=== PATIENT | female | born 2000 | race African-American/Black ===

== ENCOUNTER 2022-08-17 11:28 | Emergency (ER) | payer SELFPAY ==
[2022-08-17 11:41] VITALS: BMI 30.9
[2022-08-17] MEDS ORDERED: ONDANSETRON 4 MG/2 ML VIAL IVPUSH ONE ×2 (12:24→14:39)
[2022-08-17] MEDS ORDERED: FAMOTIDINE 20 MG/50 ML IVPB 20 MG/50 ML MG IVPB ONE ×2 (12:24→14:44)
[2022-08-17] MEDS ORDERED: ACETAMINOPHEN 1000 MG/100 ML BAG IVPB ONE (12:24)
[2022-08-17] MEDS ORDERED: FOLIC ACID INJECTION - 1 MG, THIAMINE HCL 100 MG, MULTIVIT INJECTION ADULT 10 ML in SOD... IVPB ONE (12:24)
[2022-08-17] MEDS ORDERED: ONDANSETRON 4 MG/2 ML VIAL ONE ×2 (12:39→14:43)
[2022-08-17 13:18] LABS: BASO % 0.7 % (0-2.0); EOS % 0.3 % (0-4.5); HEMOGLOBIN 14.3 GM/dL (10.7-15.3); LYMPH % 21.9 % (8-40); MCH 29.6 pg (25.7-33.7); MCHC 33.3 g/dl (32.0-36.0); MEAN CELL VOLUME 88.9 fl (80-96); MEAN PLT VOLUME 7.7 fl (7.5-11.1); MONO % 4.6 % (3.8-10.2); NEUT % 72.5 % (42.8-82.8); PLATELET COUNT 258 10^3/uL (134-434); RBC 4.83 M/mm3 (3.60-5.2); RDW 13.3 % (11.6-15.6); WHITE BLOOD COUNT 6.1 K/mm3 (4.0-10.0)
[2022-08-17 13:31] LABS: ALBUMIN 4.2 g/dl (3.4-5.0); BLOOD UREA NITROGEN 9.4 mg/dL (7-18); CALCIUM 9.6 mg/dL (8.5-10.1); MAGNESIUM 2.2 mg/dL (1.8-2.4)
[2022-08-17 13:34] LABS: CREATININE 0.9 mg/dL (0.55-1.3)
[2022-08-17 13:36] LABS: BILIRUBIN,TOTAL 1.3 mg/dL (0.2-1); TOT PROT 8.2 g/dl (6.4-8.2)
[2022-08-17] MEDS ORDERED: ACETAMINOPHEN INJECTION 100 ML IVPB ONE (14:43)
[2022-08-17 15:38] VITALS: TEMP 97.9
[2022-08-17 16:28] VITALS: BP 124/80; PULSE 83; RESP 20
== END 2022-08-17 17:05 | disposition home or self-care (01) ==
LOC: JER 11:28
PROC: 3E033GC Introduction of Other Therapeutic Substance into Peripheral Vein, Percutaneous Approach (ICD-10-PCS; principal; 2022-08-17)
PROC: 3E033GC Introduction of Other Therapeutic Substance into Peripheral Vein, Percutaneous Approach (ICD-10-PCS; 2022-08-17)
PROC: 3E033NZ Introduction of Analgesics, Hypnotics, Sedatives into Peripheral Vein, Percutaneous Approach (ICD-10-PCS; 2022-08-17)
PROC: 3E033GC Introduction of Other Therapeutic Substance into Peripheral Vein, Percutaneous Approach (ICD-10-PCS; 2022-08-17)
DX: F10.129 Alcohol abuse with intoxication, unspecified (principal); R11.14 Bilious vomiting; R11.0 Nausea; R10.13 Epigastric pain; Y90.0 Blood alcohol level of less than 20 mg/100 ml; Z20.822 Contact with and (suspected) exposure to COVID-19
CPT/HCPCS: 0241U-QW; 36415; 80053; 80307; 83690; 83735; 84703; 85025; 93005; 93010; 99285-25

== ENCOUNTER 2022-09-25 17:38 | Emergency (ER) | payer OTHER ==
[2022-09-25 17:49] VITALS: BP 108/57; PULSE 71; RESP 18; TEMP 98.5; BMI 29.2
[2022-09-25] MEDS ORDERED: KETOROLAC TROMETHAMINE 30 MG/1 ML VIAL IM ONE (19:39)
[2022-09-25] MEDS ORDERED: DEXAMETHASONE SOD PHOSPHATE 10 MG/1 ML VIAL IM ONE (19:39)
[2022-09-25] MEDS ORDERED: KETOROLAC TROMETHAMINE 30 MG/1 ML VIAL ONE (19:41)
[2022-09-25] MEDS ORDERED: DEXAMETHASONE SOD PHOSPHATE 10 MG/1 ML VIAL ONE (19:41)
== END 2022-09-25 20:53 | disposition home or self-care (01) ==
LOC: JER 17:38 → JERFT 17:38
PROC: 3E0233Z Introduction of Anti-inflammatory into Muscle, Percutaneous Approach (ICD-10-PCS; principal; 2022-09-25)
PROC: 3E023GC Introduction of Other Therapeutic Substance into Muscle, Percutaneous Approach (ICD-10-PCS; 2022-09-25)
DX: R07.0 Pain in throat (principal); R05.9 Cough, unspecified; R09.3 Abnormal sputum; R09.81 Nasal congestion
CPT/HCPCS: 36415; 87491; 87591; 87651; 99284-25; J1100

== ENCOUNTER 2023-05-08 23:10 | Emergency (ER) | payer OTHER ==
[2023-05-08 23:15] VITALS: BP 105/72; PULSE 88; RESP 16; TEMP 98.5; BMI 30.2
== END 2023-05-09 01:28 | disposition home or self-care (01) ==
LOC: JER 23:10
DX: J06.9 Acute upper respiratory infection, unspecified (principal); Z20.822 Contact with and (suspected) exposure to COVID-19
CPT/HCPCS: 0241U-QW; 87651; 99283-25